=== PATIENT | male | born 1955 | race Caucasian/White ===

== ENCOUNTER 2017-07-11 09:14 | Day surgery (SDC) | payer MEDICARE, OTHER ==
[2017-07-11] MEDS ORDERED: Lactated Ringers 1,000 ML IV SCH (09:45)
[2017-07-11] MEDS ORDERED: Propofol 200 MG/20 ML SDV ONE ×2 (10:19→11:53)
[2017-07-11] MEDS ORDERED: Midazolam 1 MG/ML 2 ML SDV ONE (10:19)
[2017-07-11] MEDS ORDERED: fentaNYL 100 MCG/2 ML SDV ONE (10:19)
[2017-07-11 13:21] VITALS: BP 123/73
--- NOTE | 2017-07-12 07:43 | OR ---
DATE OF PROCEDURE: 07/11/2017 PREOPERATIVE DIAGNOSIS: Dysphagia, colon cancer screening. POSTOPERATIVE DIAGNOSES: Gastritis, gastroesophageal reflux disease, and colonic diverticulosis. PROCEDURES: Esophagogastroduodenoscopy with antral biopsies for CLOtest and for pathology to look for Helicobacter pylori, biopsy of gastroesophageal junction, and colonoscopy to the cecum. ANESTHESIA: IV anesthesia with monitored anesthesia care. INDICATION: This 61-year-old white male is referred for upper and lower endoscopy. Indication for upper endoscopy is dysphagia. He says food occasionally gets stuck in his esophagus. Indication for the colonoscopy is colon cancer screening. His last colonoscopic exam was done 10 years ago. I counseled him for upper and lower endoscopy with possible biopsy and/or polypectomy including the risks and alternatives, and he gave his informed consent to proceed. DESCRIPTION OF PROCEDURE: The patient was placed in the left lateral decubitus position. IV anesthesia was administered by the Anesthesia Service. Time-out was held. The flexible video Olympus upper endoscope was passed through his mouth, down his esophagus, and into his stomach. The scope was easily passed through the pylorus and into the duodenum, reaching its third portion. The scope was then slowly withdrawn, examining the mucosa throughout. The duodenal mucosa appeared unremarkable. The scope was brought up through the pylorus. There was fine erythema consistent with mild gastritis. We obtained antral biopsies for CLOtest and for pathology to look for Helicobacter pylori. The scope was retroflexed. The proximal stomach appeared unremarkable. The scope was straightened and brought up through the GE junction. This was abnormal in that there were red streakings of gastric mucosa going proximally up into the esophagus and even a small island of gastric mucosa. This was all consistent with gastroesophageal reflux disease. We obtained multiple, totalling at least six, biopsies of the gastroesophageal junction. The scope was then brought proximal through the remainder of the esophagus, which otherwise appeared unremarkable, and it was removed. Next, a rectal exam was performed, which was unremarkable. The flexible video Olympus colonoscope was introduced through his anus, up his rectum, and out his colon all the way to the cecum. En route, we saw a few scattered left-sided diverticula. There was no bleeding or inflammation associated with them. Once the cecum was reached, the scope was slowly withdrawn, examining the mucosa throughout. No additional mucosal abnormalities were noted. No neoplastic lesions were seen. The scope was retroflexed in the rectum with the distal rectum appearing unremarkable. The scope was straightened and removed. He tolerated the procedure well. Moe High MD /[id number] MTDD
== END 2017-07-11 13:30 | disposition home or self-care (01) ==
LOC: JP.SDS 09:14
PROVIDERS: ATTEND Surgery
DX: Z12.11 Encounter for screening for malignant neoplasm of colon (principal); K29.50 Unspecified chronic gastritis without bleeding; K20.9 Esophagitis, unspecified; E78.00 Pure hypercholesterolemia, unspecified; K57.30 Diverticulosis of large intestine without perforation or abscess without bleeding; Z87.891 Personal history of nicotine dependence
CPT/HCPCS: 43239; 45378; 87081; J2250; J2704; J3010; J7120; 88305

== ENCOUNTER 2019-03-03 14:52 | Emergency (ER) | payer MEDICARE ==
[2019-03-03 15:14] VITALS: BP 139/82
--- NOTE | 2019-03-03 15:21 | EDM.PDOC ---
ED HPI GENERAL MEDICAL PROBLEM - General Chief Complaint: ENT Problem Stated Complaint: FELL, BLOODY NOSE Time Seen by Provider: 03/03/19 15:02 Source of Information: Reports: Patient, RN Notes Reviewed History Limitations: Reports: No Limitations - History of Present Illness INITIAL COMMENTS - FREE TEXT/NARRATIVE: 63 year old gentleman presents emergency department today complaint of bloody nose, he admits that he got out of his chair too quickly to try and answer the door fell landed predominantly on his face he is not having nose pain with lots of blood - Related Data Allergies Allergy/AdvReac Type Severity Reaction Status Date / Time No Known Allergies Allergy Verified 03/03/19 15:09 Home Meds: Home Meds Sertraline [Zoloft] 150 mg PO DAILY 07/09/17 [History] Simvastatin [Zocor] 20 mg PO BEDTIME 07/09/17 [History] Aspirin [Ecotrin] 81 mg PO DAILY 03/03/19 [History] Past Medical History HEENT History: Reports: Impaired Vision Musculoskeletal History: Reports: Back Pain, Chronic Psychiatric History: Reports: Anxiety, Depression - Past Surgical History Head Surgeries/Procedures: Reports: None HEENT Surgical History: Reports: None Neurological Surgical History: Reports: Other (See Below) Other Neurological Surgeries/Procedures: back Musculoskeletal Surgical History: Reports: Other (See Below) Other Musculoskeletal Surgeries/Procedures:: right wrist, back Dermatological Surgical History: Reports: None Social & Family History - Family History Cardiac: Reports: Bypass Respiratory: Reports: Sleep Apnea Musculoskeletal: Reports: Arthritis Psychiatric: Reports: Anxiety, Depression Endocrine/Metabolic: Reports: Diabetes, Type I, Obesity/MBI 30+ Oncologic: Reports: Breast, Prostate - Tobacco Use Smoking Status *Q: Never Smoker - Caffeine Use Caffeine Use: Reports: Coffee - Recreational Drug Use Recreational Drug Use: Yes Recreational Drug Type: Reports: Marijuana/Hashish Recreational Drug Use Frequency: Socially ED ROS ENT - Review of Systems Review Of Systems: See Below Constitutional: Reports: No Symptoms HEENT: Reports: Nose Pain Respiratory: Reports: No Symptoms Cardiovascular: Reports: No Symptoms ED EXAM, ENT - Physical Exam Exam: See Below Exam Limited By: No Limitations General Appearance: Alert, WD/WN, No Apparent Distress Nose: Normal Inspection, Active Bleeding, Dried Blood Course - Vital Signs Last Recorded V/S: Last Vital Signs Temp 98.6 F 03/03/19 15:08 Pulse 75 03/03/19 15:08 Resp 16 03/03/19 15:08 BP 139/82 03/03/19 15:10 Pulse Ox 96 03/03/19 15:08 Departure - Departure Time of Disposition: 17:34 Disposition: Home, Self-Care 01 Condition: Good Clinical Impression: Epistaxis due to trauma - Discharge Information Instructions: Nosebleed, Adult Referrals: PCP,None [Primary Care Provider] - Forms: ED Department Discharge Additional Instructions: Please followup with your primary care provider in 3-5 days if not better, please call return to the emergency department with worsening of symptoms. - Assessment/Plan Plan: Assessment Acuity = acute Site and laterality = Eptaxisis Etiology = secondary trauma Manifestations = none Location of injury = Home Lab values = CT scan maxillofacial bones shows soft tissue injury but no fracture Plan I did review CT scan results with him after removing all the clot and noseclip sitting for 30 minutes bleeding had resolved, plan is discharge home follow-up primary care as needed This note was dictated using [employer] voice recognition software please call with any questions on syntax or grammar.
--- NOTE | 2019-03-03 16:10 | CRLCT ---
INDICATION: Facial trauma, epistaxis TECHNIQUE: CT maxillofacial without contrast. COMPARISON: None FINDINGS: Facial bones: No fractures or bone lesions. Specifically the nasal bones, temporomandibular joints, maxilla and mandible appear intact. Orbits and globes: Unremarkable. Sinuses: Retention cyst in the right maxillary sinus. Small amount of fluid in both maxillary sinuses. Soft tissues: Unremarkable. IMPRESSION: No facial bone fracture or subluxation. Please note that all CT scans at this facility use dose modulation, iterative reconstruction, and/or weight-based dosing when appropriate to reduce radiation dose to as low as reasonably achievable. Dictated by April Elias MD @ Mar 03 2019 4:06PM Signed by Dr. April Elias @ Mar 03 2019 4:09PM
== END 2019-03-03 17:52 | disposition home or self-care (01) ==
LOC: JP.ED 14:52
DX: R04.0 Epistaxis (principal); F41.9 Anxiety disorder, unspecified; F32.9 Major depressive disorder, single episode, unspecified; Z79.899 Other long term (current) drug therapy; Z79.82 Long term (current) use of aspirin
CPT/HCPCS: 70486; 99283; 99283-25

== ENCOUNTER 2019-03-09 11:01 | Emergency (ER) | payer MEDICARE ==
[2019-03-09 11:13] VITALS: BP 155/78
[2019-03-09] MEDS ORDERED: Acetaminophen 325 MG Tab PO ONE (11:27)
[2019-03-09] MEDS ORDERED: Ibuprofen 600 MG Tab PO ONE (11:28)
--- NOTE | 2019-03-09 12:32 | CRLCT ---
Indication: back pain in are of prior surgery after lifting a refrigerator today Technique: Noncontrast axial CT of the thoracic spine with coronal and sagittal reformats are provided. Comparison: No prior studies available for comparison at this institution. Findings: Thoracic alignment is within normal limits. No evidence of acute osseous injury. Chronic inferior endplate T12 fracture with 4 mm retropulsion of the posterior superior corner. Posterior instrumented fusion hardware is noted from T10 through L2. No CT evidence of hardware complication. There is mature posterior fusion at these levels. At T11-12 there is posterior marginal endplate spurring without significant spinal canal stenosis. No significant spinal canal stenosis or neural foramina narrowing. Visualized lung degroot are unremarkable. Impression: 1. No evidence of acute osseous injury. Chronic inferior endplate T12 fracture with 4 mm retropulsion of the posterior superior corner. 2. Posterior instrumented fusion hardware is noted from T10 through L2. No CT evidence of hardware complication. 3. No suspicious disc bulge or herniation. At T11-12 there is posterior marginal endplate spurring without significant spinal canal stenosis. Please note that all CT scans at this facility use dose modulation, iterative reconstruction, and/or weight-based dosing when appropriate to reduce radiation dose to as low as reasonably achievable. Dictated by Zac Ibanez MD @ Mar 09 2019 12:25PM Signed by Dr. Zac Ibanez @ Mar 09 2019 12:30PM
--- NOTE | 2019-03-09 12:40 | EDM.PDOC ---
ED HPI GENERAL MEDICAL PROBLEM - General Chief Complaint: Back Pain or Injury Stated Complaint: BACK PAIN Time Seen by Provider: 03/09/19 11:15 Source of Information: Reports: Patient History Limitations: Reports: No Limitations - History of Present Illness INITIAL COMMENTS - FREE TEXT/NARRATIVE: Rod presents to the ED today with c/o mid bilateral thoracic back pain after pulling a refrigerator up the stairs this morning. Patient denies falling, he has not taken anything for the pain. Changing positions makes pain worse. Resting improves symptoms. Concerned as he had prior spinal surgery 9 years ago to this region. Patient denies any weakness to lower extremities, no loss of bowel or bladder function. Patient is working on remodeling his cabin. Onset: Today, Sudden Right Middle Back Pain Score (Numeric/FACES): 7 - Related Data Allergies Allergy/AdvReac Type Severity Reaction Status Date / Time No Known Allergies Allergy Verified 03/09/19 11:13 Home Meds: Home Meds Sertraline [Zoloft] 150 mg PO DAILY 07/09/17 [History] Simvastatin [Zocor] 20 mg PO BEDTIME 07/09/17 [History] Aspirin [Ecotrin] 81 mg PO DAILY 03/03/19 [History] Past Medical History HEENT History: Reports: Impaired Vision Cardiovascular History: Reports: High Cholesterol Musculoskeletal History: Reports: Back Pain, Chronic Psychiatric History: Reports: Anxiety, Depression - Past Surgical History Head Surgeries/Procedures: Reports: None HEENT Surgical History: Reports: None Cardiovascular Surgical History: Reports: None Neurological Surgical History: Reports: Lumbar Spine Musculoskeletal Surgical History: Reports: Other (See Below) Other Musculoskeletal Surgeries/Procedures:: right wrist, back Dermatological Surgical History: Reports: None Social & Family History - Family History Cardiac: Reports: Bypass Respiratory: Reports: Sleep Apnea Musculoskeletal: Reports: Arthritis Psychiatric: Reports: Anxiety, Depression Endocrine/Metabolic: Reports: Diabetes, Type I, Obesity/MBI 30+ Oncologic: Reports: Breast, Prostate - Tobacco Use Smoking Status *Q: Former Smoker Used Tobacco, but Quit: Yes Month/Year Tobacco Last Used: 1995 - Caffeine Use Caffeine Use: Reports: Coffee, Soda - Recreational Drug Use Recreational Drug Use: No ED ROS GENERAL - Review of Systems Review Of Systems: ROS reveals no pertinent complaints other than HPI. ED EXAM, GENERAL - Physical Exam Exam: See Below Exam Limited By: No Limitations General Appearance: Alert, WD/WN, No Apparent Distress Neck: Normal Inspection, Supple, Non-Tender Respiratory/Chest: No Respiratory Distress, Lungs Clear Cardiovascular: Normal Peripheral Pulses, No Murmur, Bradycardia Back Exam: Muscle Spasm (bilateral thoracic region, no spinous process tenderness) Extremities: Normal Inspection, Normal Range of Motion, Non-Tender (strength is 5/5) Neurological: Alert, Oriented, CN II-XII Intact, Normal Cognition, Normal Reflexes, No Motor/Sensory Deficits Skin Exam: Warm, Dry, Intact Lymphatic: No Adenopathy Course - Vital Signs Last Recorded V/S: Last Vital Signs Temp 35.9 C 03/09/19 11:14 Pulse 51 L 03/09/19 11:14 Resp 13 03/09/19 11:14 BP 155/78 H 03/09/19 11:14 Pulse Ox 98 03/09/19 11:14 Rod is a very pleasant 63 year old male who presents to the ED today with c/ o bilateral thoracic back pain. Patient's exam is consistent with acute spasm. CT scan obtained to evaluated hardware and is negative for any acute findings. Patient's pain improved here with ibuprofen and Tylenol, he can continue these at home. Patient prescribed Robaxin as needed for spasming, instructed not to drive until he knows how it makes him feel. Patient has no neuro/focal deficits on exam. Reasons to return to the ED Discussed, patient agreeable to plan of care and discharged in stable condition. - Orders/Labs/Meds Meds: Medications Discontinued Medications Generic Name Dose Route Start Last Admin Trade Name Lenin PRN Reason Stop Dose Admin Acetaminophen 650 mg 03/09/19 11:27 03/09/19 11:31 Tylenol PO 03/09/19 11:28 650 mg NOW ONE Administration Ibuprofen 600 mg 03/09/19 11:28 03/09/19 11:32 Motrin PO 03/09/19 11:29 600 mg ONETIME ONE Administration Departure - Departure Time of Disposition: 12:45 Disposition: Home, Self-Care 01 Condition: Good Clinical Impression: Back pain due to injury, Muscle spasm of back - Discharge Information Instructions: Muscle Cramps and Spasms, [id number], Acute Pain, Adult Referrals: PCP,None [Primary Care Provider] - Forms: ED Department Discharge Additional Instructions: Ibuprofen 600 mg every 6 hours as needed for pain Tylenol 650 mg as needed for pain Robaxin as prescribed for muscle spasm, this may make you sleep, so do not drive until you know how it makes you feel.
== END 2019-03-09 12:56 | disposition home or self-care (01) ==
LOC: JP.ED 11:01
DX: M62.830 Muscle spasm of back (principal); M54.6 Pain in thoracic spine; F41.9 Anxiety disorder, unspecified; F32.9 Major depressive disorder, single episode, unspecified; E78.00 Pure hypercholesterolemia, unspecified; Z79.82 Long term (current) use of aspirin; Z79.899 Other long term (current) drug therapy; X50.0XXA Overexertion from strenuous movement or load, initial encounter
CPT/HCPCS: 72128; 99283; A9270